=== PATIENT | male | born 1970 | race Caucasian/White ===

== ENCOUNTER → 2020-09-11 | Outpatient (CLI) | payer BC ==
[2020-09-11 08:25] LABS: POTASSIUM 4.5 mmol/L (3.5-5.1)
[2020-09-11 08:26] LABS: ALBUMIN 4.2 g/dL (3.5-5.0)
[2020-09-11 08:27] LABS: CALCIUM 9.1 mg/dL (8.3-10.5)
[2020-09-11 08:28] LABS: TOTAL PROTEIN 7.6 g/dL (6.4-8.3)
[2020-09-11 08:30] LABS: TOTAL BILIRUBIN 0.6 mg/dL (0.2-1.2)
[2020-09-11 08:34] LABS: EOS # 0.3 (0.04-0.40); HEMATOCRIT 48.2 % (42.0-52.0); HEMOGLOBIN 15.9 g/dL (13.5-18.0); LYMPH# 1.2 (1.50-4.00); MEAN CELL VOLUME 83 fl (78-100); MEAN CORPUSCULAR HEMOGLOBIN 27 pg (27-31); MEAN CORPUSCULAR HGB CONC 33 g/dL (33-37); MONO # 0.5 (0.20-0.80); NEU # 2.2 (1.40-6.50); RED BLOOD COUNT 5.83 M/mm3 (4.20-5.60); RED CELL DISTRIBUTION WIDTH 14.3 % (11.5-14.5); WHITE BLOOD COUNT 4.2 K/mm3 (4.8-10.8)
[2020-09-11 08:39] LABS: EOS % 6.4 % (0.0-4.0); PLATELET COUNT 287 K/mm3 (130-400)
== END ==
LOC: LAB 07:56
PROVIDERS: Physician Assistant
DX: Z00.00 Encounter for general adult medical examination without abnormal findings (principal); I10 Essential (primary) hypertension; E78.00 Pure hypercholesterolemia, unspecified

== ENCOUNTER → 2022-03-21 | Outpatient (CLI) | payer BC ==
[2022-03-21 07:37] LABS: BASO # 0.03 K/mm3 (0.02-0.10); EOS % 3.4 % (0.0-4.0); HEMATOCRIT 45.8 % (42.0-52.0); HEMOGLOBIN 15.2 g/dL (13.5-18.0); LYMPH# 1.54 K/mm3 (1.50-4.00); MEAN CELL VOLUME 84 fl (78-100); MEAN CORPUSCULAR HEMOGLOBIN 28 pg (27-31); MEAN CORPUSCULAR HGB CONC 33 g/dL (33-37); MEAN PLATELET VOLUME 8.8 fl (7.4-10.4); MONO # 0.45 K/mm3 (0.20-0.80); NEU # 3.72 K/mm3 (1.40-6.50); PLATELET COUNT 297 K/mm3 (130-400); RED BLOOD COUNT 5.46 M/mm3 (4.20-5.60); RED CELL DISTRIBUTION WIDTH 13.6 % (11.5-14.5)
[2022-03-21 08:04] LABS: ALBUMIN 4.1 g/dL (3.5-5.0)
[2022-03-21 08:05] LABS: CALCIUM 9.2 mg/dL (8.3-10.5)
[2022-03-21 08:06] LABS: TOTAL PROTEIN 6.9 g/dL (6.4-8.3)
[2022-03-21 08:08] LABS: TOTAL BILIRUBIN 0.8 mg/dL (0.2-1.2)
== END ==
LOC: LAB 07:12
PROVIDERS: Physician Assistant
DX: Z12.5 Encounter for screening for malignant neoplasm of prostate (principal); Z13.29 Encounter for screening for other suspected endocrine disorder; I10 Essential (primary) hypertension; E11.9 Type 2 diabetes mellitus without complications; E78.00 Pure hypercholesterolemia, unspecified; G47.33 Obstructive sleep apnea (adult) (pediatric)

== ENCOUNTER → 2022-07-18 | Outpatient (CLI) | payer BC | LOC: RAD 12:03 | DX: M25.562 Pain in left knee (principal) ==

== ENCOUNTER → 2023-04-13 | Outpatient (CLI) | payer BC ==
[2023-04-13 11:03] LABS: BASO # 0.05 K/mm3 (0.02-0.10); EOS # 0.31 K/mm3 (0.04-0.40); HEMATOCRIT 45.2 % (42.0-52.0); HEMOGLOBIN 14.9 g/dL (13.5-18.0); LYMPH# 1.69 K/mm3 (1.50-4.00); MEAN CELL VOLUME 84 fl (78-100); MEAN CORPUSCULAR HEMOGLOBIN 28 pg (27-31); MEAN CORPUSCULAR HGB CONC 33 g/dL (33-37); NEU # 3.67 K/mm3 (1.40-6.50); PLATELET COUNT 295 K/mm3 (130-400); RED BLOOD COUNT 5.38 M/mm3 (4.20-5.60); RED CELL DISTRIBUTION WIDTH 13.2 % (11.5-14.5); WHITE BLOOD COUNT 6.2 K/mm3 (4.8-10.8)
[2023-04-13 11:26] LABS: ALBUMIN 3.9 g/dL (3.5-5.0)
[2023-04-13 11:27] LABS: CALCIUM 8.8 mg/dL (8.3-10.5)
[2023-04-13 11:30] LABS: TOTAL BILIRUBIN 0.6 mg/dL (0.2-1.2)
== END ==
LOC: LAB 10:20
PROVIDERS: Physician Assistant
DX: Z00.00 Encounter for general adult medical examination without abnormal findings (principal); Z12.11 Encounter for screening for malignant neoplasm of colon; Z13.29 Encounter for screening for other suspected endocrine disorder; Z12.5 Encounter for screening for malignant neoplasm of prostate; I10 Essential (primary) hypertension; E11.9 Type 2 diabetes mellitus without complications; E78.00 Pure hypercholesterolemia, unspecified; G47.33 Obstructive sleep apnea (adult) (pediatric); J30.2 Other seasonal allergic rhinitis; K90.9 Intestinal malabsorption, unspecified

== ENCOUNTER → 2023-09-25 | Outpatient (CLI) | payer BC | LOC: LAB 12:16 | DX: E11.9 Type 2 diabetes mellitus without complications (principal) ==

== ENCOUNTER → 2023-09-25 | Day surgery (SDC) | payer BC ==
[~2023-09-25] MED LIST: fentaNYL 100 MCG/2 ML VIAL IV SCH
== END | disposition home or self-care (01) ==
LOC: MSO 07-13 11:11
DX: Z12.11 Encounter for screening for malignant neoplasm of colon (principal); E66.01 Morbid (severe) obesity due to excess calories
CPT/HCPCS: 00812; J2704; J3010; J7120

== ENCOUNTER → 2024-06-06 | Outpatient (CLI) | payer BC ==
[2024-06-06 09:12] LABS: BASO # 0.05 K/mm3 (0.02-0.10); EOS # 0.14 K/mm3 (0.04-0.40); EOS % 2.7 % (0.0-4.0); HEMATOCRIT 46.4 % (42.0-52.0); HEMOGLOBIN 15.1 g/dL (13.5-18.0); LYMPH# 1.56 K/mm3 (1.50-4.00); MEAN CELL VOLUME 87 fl (78-100); MEAN CORPUSCULAR HEMOGLOBIN 28 pg (27-31); MEAN CORPUSCULAR HGB CONC 33 g/dL (33-37); MEAN PLATELET VOLUME 8.6 fl (7.4-10.4); MONO # 0.43 K/mm3 (0.20-0.80); NEU # 2.94 K/mm3 (1.40-6.50); PLATELET COUNT 306 K/mm3 (130-400); RED BLOOD COUNT 5.35 M/mm3 (4.20-5.60); RED CELL DISTRIBUTION WIDTH 13.2 % (11.5-14.5); WHITE BLOOD COUNT 5.1 K/mm3 (4.8-10.8)
[2024-06-06 09:25] LABS: ALBUMIN 4.1 g/dL (3.5-5.0)
[2024-06-06 09:26] LABS: CALCIUM 9.7 mg/dL (8.3-10.5)
[2024-06-06 09:28] LABS: TOTAL PROTEIN 7.5 g/dL (6.4-8.3)
[2024-06-06 09:29] LABS: TOTAL BILIRUBIN 0.6 mg/dL (0.2-1.2)
== END ==
LOC: LAB 08:49
PROVIDERS: Physician Assistant
DX: Z12.5 Encounter for screening for malignant neoplasm of prostate (principal); I10 Essential (primary) hypertension; E11.9 Type 2 diabetes mellitus without complications; K90.9 Intestinal malabsorption, unspecified; E78.00 Pure hypercholesterolemia, unspecified